=== PATIENT | male | born 1945 | race Caucasian/White ===

== ENCOUNTER 2021-06-28 11:46 | Outpatient (CLI) | payer MEDICARE, SELFPAY ==
[2021-06-28 19:23] LABS: Basophils Percent Auto 0.6 % (0.2-1.2); Eosinophils Absolute Auto 0.1 K/mm3 (0-0.3); Eosinophils Percent Auto 2.2 % (0-4.4); Hematocrit 50.3 % (42.0-52.0); Hemoglobin 16.4 g/dL (14.0-18.0); Immature Granulocyte Absolute 0.02 K/mm3 (0.00-0.031); Immature Granulocyte Percent A 0.3 % (0-0.5); Lymphocytes Absolute Auto 1.21 K/mm3 (0.9-3.2); Lymphocytes Percent Auto 19.2 % (18.3-44.2); Mean Corpuscular HGB Conc 32.6 g/dl (32-36); Mean Corpuscular Hemoglobin 31.4 pg (26-34); Mean Corpuscular Volume 96.4 fl (80-100); Mean Platelet Volume 11.3 fl (7.4-10.4); Monocytes Absolute Auto 0.5 K/mm3 (0.1-0.6); Monocytes Percent Auto 8.1 % (2.6-8.5); Neutrophils Absolute Auto 4.4 K/mm3 (1.3-6.7); Neutrophils Percent Auto 69.6 % (45.5-73.1); Platelet Count Result 173 k/mm3 (150-375); Red Blood Count 5.22 M/mm3 (4.6-6.20); Red Cell Distribution Width 13.8 % (11.5-14.5); White Blood Count 6.3 K/mm3 (4.5-10.0)
[2021-06-28 19:31] LABS: Add Urine Microscopic? YES; Alanine Aminotransferase 35 U/L (4-50); Albumin Level 4.3 g/dL (3.5-5.1); Alkaline Phosphatase 119 U/L (38-126); Anion Gap 13 mmol/L (8-16); Appearance Urine Clear (Clear); Aspartate Amino Transferase 30 U/L (17-59); Bilirubin Urine Negative (Negative); Bilirubin,Total 0.8 mg/dL (0.2-1.3); Blood Urea Nitrogen 17 mg/dL (9-20); Blood Urine Negative (Negative); Calcium 9.3 mg/dL (8.4-10.2); Carbon Dioxide 28 mmol/L (22-30); Chloride 101 mmol/L (98-107); Cholesterol 269 mg/dL (0-200); Color Urine Yellow (Yellow); Estimated Glomerular Filt Rate 59; Glucose 171 mg/dL (65-110); Glucose Urine UA Negative (Negative); HDL Direct 77 mg/dL; Ketones Urine Negative (Negative); Leukocyte Esterase Ur Negative LEU/UL (NEGATIVE); Mucus Urine Rare /lpf; Nitrate Urine Negative (Negative); Protein Urine Negative (Negative); RBC Urine 0-2 /hpf (0-2); Sodium 142 mmol/L (137-145); Specific Grav Ur 1.018 (1.001-1.035); Triglycerides 91 mg/dL (<150); WBC Urine 0-3 /hpf (0-3)
[2021-06-28 19:33] LABS: Iron 149 ug/dL (49-181)
[2021-06-28 19:42] LABS: LDL Cholesterol Direct 165 mg/dL
[2021-06-28 19:46] LABS: Percent Iron Saturation 67 % (20-50)
[2021-06-28 20:00] LABS: Prostate Specific Antigen 0.7 ng/mL (< OR = 4.0)
[2021-06-28 20:08] LABS: Hemoglobin A1C 5.3 % (<5.7)
[2021-07-02 11:09] LABS: Carbamazepine Tegretol 5.8 mcg/mL (4.0-12.0)
== END 2021-06-28 11:47 | disposition home or self-care (01) ==
PROVIDERS: PCP Family Medicine; Visit Provider Family Medicine
DX: G50.0 Trigeminal neuralgia (principal); Z00.00 Encounter for general adult medical examination without abnormal findings; R73.09 Other abnormal glucose; I10 Essential (primary) hypertension; Z12.5 Encounter for screening for malignant neoplasm of prostate
CPT/HCPCS: 36415; 80053; 80061; 80156; 81001; 83036; 83540; 83550; 84153; 84443; 85025; G0103

== ENCOUNTER 2022-01-27 14:18 | Outpatient (CLI) | payer MEDICARE, SELFPAY ==
[2022-01-27 20:37] LABS: Hemoglobin A1C 5.2 % (<5.7)
== END 2022-01-27 14:19 | disposition home or self-care (01) ==
PROVIDERS: PCP Family Medicine; Visit Provider Family Medicine
DX: R73.09 Other abnormal glucose (principal)
CPT/HCPCS: 36415; 83036

== ENCOUNTER 2022-03-12 14:24 | Outpatient (CLI) | payer MEDICARE, SELFPAY ==
[2022-03-12 19:23] LABS: Cholesterol 252 mg/dL (0-200); HDL Direct 59 mg/dL; Triglycerides 86 mg/dL (<150)
[2022-03-12 19:34] LABS: LDL Cholesterol Direct 147 mg/dL
== END 2022-03-12 14:25 | disposition home or self-care (01) ==
PROVIDERS: PCP Family Medicine; Visit Provider Family Medicine
DX: E78.5 Hyperlipidemia, unspecified (principal)
CPT/HCPCS: 36415; 80061

== ENCOUNTER 2022-09-22 14:05 | Outpatient (CLI) | payer MEDICARE, SELFPAY ==
[2022-09-22 19:02] LABS: Basophils Percent Auto 0.4 % (0.2-1.2); Eosinophils Absolute Auto 0.1 K/mm3 (0-0.3); Eosinophils Percent Auto 1.1 % (0-4.4); Hematocrit 53.2 % (42.0-52.0); Hemoglobin 17.3 g/dL (14.0-18.0); Immature Granulocyte Absolute 0.04 K/mm3 (0.00-0.031); Immature Granulocyte Percent A 0.4 % (0-0.5); Lymphocytes Absolute Auto 1.23 K/mm3 (0.9-3.2); Lymphocytes Percent Auto 13.5 % (18.3-44.2); Mean Corpuscular HGB Conc 32.5 g/dl (32-36); Mean Corpuscular Hemoglobin 31.1 pg (26-34); Mean Corpuscular Volume 95.7 fl (80-100); Mean Platelet Volume 10.9 fl (7.4-10.4); Monocytes Absolute Auto 0.7 K/mm3 (0.1-0.6); Monocytes Percent Auto 7.7 % (2.6-8.5); Neutrophils Percent Auto 76.9 % (45.5-73.1); Platelet Count Result 214 k/mm3 (150-375); Red Blood Count 5.56 M/mm3 (4.6-6.20); Red Cell Distribution Width 13.5 % (11.5-14.5); White Blood Count 9.1 K/mm3 (4.5-10.0)
[2022-09-22 19:44] LABS: Alanine Aminotransferase 44 U/L (6-50); Albumin Level 4.7 g/dL (3.5-5.1); Alkaline Phosphatase 135 U/L (38-126); Anion Gap 11 mmol/L (8-16); Aspartate Amino Transferase 58 U/L (17-59); Bilirubin,Total 0.9 mg/dL (0.2-1.3); Blood Urea Nitrogen 25 mg/dL (9-20); Calcium 9.1 mg/dL (8.4-10.2); Carbon Dioxide 27 mmol/L (22-30); Chloride 104 mmol/L (98-107); Cholesterol 281 mg/dL (0-200); Estimated Glomerular Filt Rate > 60; Glucose 128 mg/dL (65-110); HDL Direct 56 mg/dL; Potassium 3.5 mmol/L (3.4-5.0); Sodium 142 mmol/L (137-145); Triglycerides 116 mg/dL (<150)
[2022-09-22 19:55] LABS: LDL Cholesterol Direct 165 mg/dL
[2022-09-22 20:13] LABS: Prostate Specific Antigen 0.9 ng/mL (< OR = 4.0)
[2022-09-22 21:23] LABS: Hemoglobin A1C 5.1 % (<5.7)
== END 2022-09-22 14:06 | disposition home or self-care (01) ==
PROVIDERS: PCP Family Medicine; Visit Provider Family Medicine
DX: Z12.5 Encounter for screening for malignant neoplasm of prostate (principal); R73.09 Other abnormal glucose; K59.00 Constipation, unspecified; I10 Essential (primary) hypertension; G50.0 Trigeminal neuralgia; G47.00 Insomnia, unspecified; F41.9 Anxiety disorder, unspecified; E78.5 Hyperlipidemia, unspecified
CPT/HCPCS: 36415; 80053; 80061; 83036; 84153; 85025; G0103

== ENCOUNTER 2023-05-18 03:13 | Day surgery (SDC) | payer MEDICARE, SELFPAY ==
[2023-05-15 16:07] VITALS: BMI 24.1
[2023-05-18] VITALS (14 sets, daily range): BP systolic 109–181; BP diastolic 50–114; PULSE 58–78; RESP 12–22; TEMP 36.6; O2SAT 95–100; BMI 25.0
--- NOTE | 2023-05-18 11:09 | WPDMODSED ---
Moderate Sedation Note-Pt Data Patient Data Diagnosis: Stroke, TIA Present Complaint: History of stroke, TIA. No active complaint Procedure to be performed/Plan: 1. Multiplanar transesophageal echocardiogram with per color-flow pulse-wave Doppler Agitated saline study Moderate sedation Allergies Allergy/AdvReac Type Severity Reaction Status Date / Time No Known Allergies Allergy Verified 05/18/23 10:31 Home Medications Medication Instructions Recorded Confirmed Type blood pressure monitor #1 ea 02/14/21 01/21/23 Rx esomeprazole magnesium 20 mg 20 mg PO DAILY #90 tabs 02/13/22 05/15/23 Rx tablet,delayed release buspirone 5 mg tablet 5 mg PO BID #60 tabs 01/21/23 05/15/23 Rx escitalopram oxalate 10 mg tablet 10 mg PO DAILY #90 tabs 01/21/23 05/15/23 Rx (Lexapro) aspirin 81 mg chewable tablet 81 mg PO DAILY 01/27/23 05/15/23 History atorvastatin 40 mg tablet 40 mg PO DAILY #90 tabs 03/05/23 05/15/23 Rx amlodipine 5 mg tablet 5 mg PO DAILY #90 tabs 03/31/23 05/15/23 Rx lisinopril 10 mg tablet 10 mg PO DAILY 05/15/23 05/15/23 History multivit with minerals-iron 18 1 tablet PO DAILY 05/15/23 05/15/23 History mg-folic ac 400 mcg-vit K 25 mcg tablet (Adults Multivitamin) Current Medications: Active Medications Sodium Chloride (Normal Saline Iv) 1,000 mls @ 100 mls/hr IV CONT .Q10H LENCHO Sedation/Anesthesia: No previous sedation/anesthesia problems (including family history). PENDING SALE TO [facility] Family History Family History Mother Patient's mother is Father Patient's father is Social History Social History (Updated 01/14/23 @ 14:28 by Yumiko Chadwick MA) Smoking status: Never smoker Second hand tobacco smoke exposure: No Alcohol intake: never Substance use: never Substance use type: does not use Lack of Transportation: No Lack of Food: Never True Current Housing: I Have Housing Concerned About Future Housing: No Difficulty Paying Gas/Electric Bills: No Difficulty Paying for Meds: No Currently Unemployed: No Education: High School Diploma/GED Difficulty w/ Childcare or Family Care: No Living arrangements: with family Occupation/Education: retired Gender identity (if verbalized by the patient): Male Spiritual care concerns: No Mod Sed Physical Exam Physical Exam Pre Procedural Exam: Normal: Appearance, Eyes, Ears, Nose, Neck, Throat, Airway, Lungs, Heart Size, Heart Rate, Heart Rhythm, Neuro Exam, Extremities and Skin Hours since solid foods: 12 Hours since liquid intake: 12 Mallampati Classification: class II Internal Medicine - PN: Obj Da Vital Signs Vital Signs: Vital Signs - 24 hr 05/18/23 10:35 Temperature 36.6 C Pulse Rate 66 Respiratory Rate 22 H Blood Pressure 138/62 Pulse Oximetry 99 Oxygen Delivery Room Air Meds/Results Medications: Active Medications Generic Name Dose Route Start Last Admin Trade Name Freq PRN Reason Stop Dose Admin Sodium Chloride 1,000 mls @ 100 mls/hr 05/18/23 10:00 Normal Saline Iv IV CONT .Q10H LENCHO ASA Classification/Sedation ASA Classification/Sedation ASA Class: II Emergent: No Risks: Risks, benefits and alternatives explained and patient/family accepted plan for sedation. Patient re-evaluated immediately prior to sedation.
--- NOTE | 2023-05-18 11:39 | WPDTEECHO ---
[facility] TransEsophageal Echocardiogram Date of procedure: 05/18/23 Procedure Type: 1. Multiplanar transesophageal echocardiography with color flow and pulse wave Doppler 2. Agitated saline study 3. Moderate sedation Diagnosis: History of stroke/TIA Indications: History of stroke/TIA Image Quality: Good Findings: After discussing the risks, benefits alternatives of procedure patient agreed with via verbal and written informed consent. Risks discussed include esophageal rupture perforation, need for emergent surgery, bleeding, pain, infection, is sore throat. 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 Procedure start time 11:13 a.m. Procedure stop time 11:29 a.m. Complications: None Blood loss: None Moderate sedation: A total of 4 mg of Versed and 75 mcg of fentanyl given in divided dosages and Hurricaine spray to the hypopharynx x2 for topical anesthetic. Medications were administered patient was monitored by Gabi Meraz RN Findings: Normal left ventricular size. Ejection fraction roughly estimated at 60%. Normal right ventricular size and function. Mild left atrial enlargement. Normal right atrial size. Atrial septum is intact without color flow or agitated saline evidence of shunting. Left atrial appendage is also normal with no mass or thrombus. Pulse wave velocities are greater than 100 centimeters/second. Normal mitral valve with [id number] mitral regurgitation. Aortic valve is trileaflet, mildly sclerotic and mild AI. Pulmonic valve is grossly normal without significant pulmonic insufficiency. Tricuspid valve is normal. Aortic root normal in size without any obvious scoliosis noted at the aortic root level. No pericardial effusion. Conclusions: 1. Normal left ventricular size and function 2. Mild left atrial enlargement 3. Normal left atrial appendage and normal atrial septum. No agitated saline evidence of shunting. 4. [id number] mitral regurgitation, mild AI 5. Moderate sedation
== END 2023-05-18 12:40 | disposition home or self-care (01) ==
PROVIDERS: PCP Family Medicine; Visit Provider Internal Medicine Cardiovascular Disease
PROC: (CPT 93312; principal; 2023-05-18 11:00)
DX: I34.0 Nonrheumatic mitral (valve) insufficiency (principal); I49.3 Ventricular premature depolarization; R06.09 Other forms of dyspnea; I10 Essential (primary) hypertension; E78.5 Hyperlipidemia, unspecified; F32.A Depression, unspecified; Z86.73 Personal history of transient ischemic attack (TIA), and cerebral infarction without residual deficits; Z79.82 Long term (current) use of aspirin; Z77.22 Contact with and (suspected) exposure to environmental tobacco smoke (acute) (chronic)
CPT/HCPCS: 93312; 93320; 93325; J2250; J3010; J7030

== ENCOUNTER 2023-06-06 00:12 | Emergency (ER) | payer MEDICARE, SELFPAY ==
--- NOTE | ~2023-06-06 | XR_ITS ---
EXAMINATION: XR chest 2V DATE: 06/06/2023 00:58 INDICATION: Cough. Weakness. TECHNIQUE: Frontal and lateral views of the chest were obtained. COMPARISON: Chest 2 views 07/07/2017 FINDINGS: There are airspace opacities at the lung bases. No pleural effusion or pneumothorax. The he art size is normal. IMPRESSION: 1. Airspace opacities at the lung bases with worsening on the left, consistent with atelectasis versu s pneumonia. Reviewed, dictated and finalized at location A. OG IC DESIGN ARCHITECT IMPRESSION: 1. Airspace opacities at the lung bases with worsening on the left, consistent with atelectasis versus pneumonia.
--- NOTE | ~2023-06-06 | CT_ITS ---
EXAMINATION: CT brain wo con DATE: 06/06/2023 02:11 INDICATION: Unsteady gait. TECHNIQUE: Computed tomography (CT) of the head was performed without intravenous contrast. The mA wa s adjusted according to patient size. Iterative reconstruction technique was employed. The dose-lengt h product was 1210.67 mGy-cm. COMPARISON: None FINDINGS: There is an old infarct in right temporal parietal occipital region. There are scattered ar eas of low attenuation in the cerebral white matter. There are old infarcts in the bilateral thalami and bilateral basal ganglia. There is no intracranial hemorrhage, acute infarction, or abnormal intra cranial mass lesion. The ventricles are normal in size. There is mild mucosal thickening in the paran caroline sinuses. There are likely changes of ocular lens replacement surgeries. The mastoid air cells ar e normal. IMPRESSION: 1. Old infarcts involving the right temporal parietal occipital region and bilateral thalami and basa l ganglia. 2. Moderate nonspecific cerebral white matter disease, which likely represents chronic small vessel i schemic disease. Reviewed, dictated and finalized at location A. F LIBRARIAN WORK WITH BLIND IMPRESSION: 1. Old infarcts involving the right temporal parietal occipital region and bila teral thalami and basal ganglia. 2. Moderate nonspecific cerebral white matter disease, which likely represents chronic small vessel ischemic disease.
[2023-06-06 00:12] VITALS: BP 123/92; PULSE 85; RESP 22; TEMP 37.8; O2SAT 94
--- NOTE | 2023-06-06 00:15 | ECG_ITS ---
Measurements Intervals [place] Rate: 82 P: 48 [place]: 166 QRS: -20 QRSD: 109 T: 86 QT: 361 QTc: 422 Interpretive Statements SINUS RHYTHM NONSPECIFIC ST & T-WAVE ABNORMALITY NO PREVIOUS ECG AVAILABLE FOR COMPARISON Electronically Signed On 06-07-2023 14:24:28 CIRCLE SAW OPERATOR by Concepcion Red M.D.
[2023-06-06 00:36] LABS: Basophils Percent Auto 0.2 % (0.2-1.2); Eosinophils Percent Auto 0.1 % (0-4.4); Hematocrit 44.2 % (42.0-52.0); Hemoglobin 14.4 g/dL (14.0-18.0); Immature Granulocyte Absolute 0.06 K/mm3 (0.00-0.031); Immature Granulocyte Percent A 0.4 % (0-0.5); Lymphocytes Percent Auto 1.4 % (18.3-44.2); Mean Corpuscular HGB Conc 32.6 g/dl (32-36); Mean Corpuscular Hemoglobin 31.2 pg (26-34); Mean Corpuscular Volume 95.7 fl (80-100); Mean Platelet Volume 10.3 fl (7.4-10.4); Monocytes Absolute Auto 0.8 K/mm3 (0.1-0.6); Monocytes Percent Auto 5.6 % (2.6-8.5); Neutrophils Absolute Auto 12.8 K/mm3 (1.3-6.7); Neutrophils Percent Auto 92.3 % (45.5-73.1); Platelet Count Result 185 k/mm3 (150-375); Red Blood Count 4.62 M/mm3 (4.6-6.20); Red Cell Distribution Width 13.3 % (11.5-14.5); White Blood Count 13.9 K/mm3 (4.5-10.0)
[2023-06-06 00:46] LABS: Alanine Aminotransferase 23 U/L (6-50); Albumin Level 4.3 g/dL (3.5-5.1); Alkaline Phosphatase 121 U/L (38-126); Anion Gap 11 mmol/L (8-16); Aspartate Amino Transferase 32 U/L (17-59); Bilirubin,Total 0.7 mg/dL (0.2-1.3); Blood Urea Nitrogen 29 mg/dL (9-20); Calcium 8.9 mg/dL (8.4-10.2); Carbon Dioxide 25 mmol/L (22-30); Chloride 103 mmol/L (98-107); Estimated CRCL calculation 39 ml/min; Estimated Glomerular Filt Rate 49; Glucose 151 mg/dL (65-110); Sodium 139 mmol/L (137-145)
[2023-06-06 01:11] LABS: Influenza A QL RT-PCR Negative (Negative); Influenza B QL RT-PCR Negative (Negative); RSV RNA, RT-PCR Negative (Negative); SARS-CoV-2 RNA PCR Positive (Negative)
[2023-06-06] MEDS: SODIUM CHLORIDE 0.9% IV 1,000 ML 999 ML IV CONT (01:30)
[2023-06-06] MEDS: ACETAMINOPHEN 500 MG TABLET 1000 MG PO (01:39)
[2023-06-06 01:46] LABS: Lactic Acid Reflex 2.4 mmol/L (0.7-2.0)
[2023-06-06 01:57] LABS: NT Pro B Type Natriuretic Pept 1320 pg/mL (19.9-100); Troponin I < 0.012 ng/mL (0.000-0.034)
[2023-06-06 02:04] LABS: Procalcitonin 1.9 ng/mL
[2023-06-06 02:06] VITALS: BP 123/91; PULSE 70; RESP 15; O2SAT 92
[2023-06-06 02:58] LABS: Appearance Urine Cloudy (Clear); Bacteria Urine None Seen /hpf; Bilirubin Urine 1+ (Negative); Blood Urine 2+ (Negative); Color Urine Dark Yellow (Yellow); Glucose Urine UA Negative (Negative); Ketones Urine Trace mg/dL (Negative); Leukocyte Esterase Ur Trace LEU/UL (Negative); Need Manual Microscopic Reviewed; Nitrate Urine Negative (Negative); Protein Urine 2+ mg/dL (Negative); RBC Urine 0-2 /hpf (0-2); Specific Grav Ur 1.028 (1.001-1.035); Squamous Epithelial Cell Urine Few /hpf (Few); WBC Urine 0-5 /hpf
[2023-06-06 03:00] VITALS: BP 115/64; PULSE 67; RESP 16; O2SAT 93
[2023-06-06 03:35] LABS: Add Urine Microscopic? YES
[2023-06-06 04:30] LABS: Reflex Lactic Acid Yes or No Add Lactic
--- NOTE | 2023-06-06 05:13 | ED.GENADULT ---
HPI - General Adult General Chief complaint: Weakness Stated complaint: SICK CASE, WEAK, COUGH Time Seen by Provider: 06/06/23 01:12 History of Present Illness HPI narrative: Patient is a 78-year-old gentleman who presents emergency department chief complaint not feeling well patient has prior history a hemorrhagic stroke and also has had multiple other small strokes. Patient states that the family on called EMS after he had had some falls today at home initially EMS and nondistended his oxygen saturation was 87% on room air was placed on oxygen patient was brought to the emergency department and currently not requiring oxygen therapy. The patient states that he threw that he may have COVID Related Data Home Medications Medication Instructions Recorded Confirmed aspirin 81 mg chewable tablet 81 mg PO DAILY 01/27/23 05/15/23 lisinopril 10 mg tablet 10 mg PO DAILY 05/15/23 05/15/23 multivit with minerals-iron 18 1 tablet PO DAILY 05/15/23 05/15/23 mg-folic ac 400 mcg-vit K 25 mcg tablet (Adults Multivitamin) Allergies Allergy/AdvReac Type Severity Reaction Status Date / Time No Known Allergies Allergy Verified 06/06/23 00:19 Review of Systems Review of Systems: A 10 system review of systems was completed on the patient and is negative except for what is stated in the HPI. Nursing and ancillary documentation was reviewed. [facility] Family History Family History Mother Patient's mother is Father Patient's father is Social History Social History Smoking status: Never smoker Second hand tobacco smoke exposure: No Alcohol intake: never Substance use: never Substance use type: does not use Lack of Transportation: No Lack of Food: Never True Current Housing: I Have Housing Concerned About Future Housing: No Difficulty Paying Gas/Electric Bills: No Difficulty Paying for Meds: No Currently Unemployed: No Education: High School Diploma/GED Difficulty w/ Childcare or Family Care: No Living arrangements: with family Occupation/Education: retired Gender identity (if verbalized by the patient): Male Spiritual care concerns: No Exam Narrative: GENERAL: Well-appearing, well-nourished, and in no acute distress. HEAD: Normocephalic, atraumatic. EYES: PERRLA and EOMI. ENT: Nares clear, no rhinorrhea or epistaxis. Mucous membranes moist. NECK: Supple. CHEST: Clear to auscultation. No respiratory distress. HEART: Regular rate and rhythm. No murmur heard. Normal peripheral pulses. ABDOMEN: Soft, nontender, nondistended, normal active bowel sounds. EXTREMITIES: Normal range of motion. No edema. SKIN: Warm, dry, no rash. NEURO: No focal deficits. Alert and oriented x3. PSYCH: Normal mood and affect. Course Vital Signs Vital signs: Vital Signs Temperature 37.8 C H 06/06/23 00:12 Pulse Rate 85 06/06/23 00:12 Respiratory Rate 22 H 06/06/23 00:12 Blood Pressure 123/92 H 06/06/23 00:12 Pulse Oximetry 94 06/06/23 00:12 Oxygen Delivery Room Air 06/06/23 00:12 Temperature 37.8 C H 06/06/23 00:12 Pulse Rate 85 06/06/23 00:12 Respiratory Rate 22 H 06/06/23 00:12 Blood Pressure 123/92 H 06/06/23 00:12 Pulse Oximetry 94 06/06/23 00:12 Oxygen Delivery Room Air 06/06/23 00:12 Medical Decision Making [facility] Narrative Medical decision making narrative: Differential diagnosis includes pneumonia, COVID-19, UTI, sepsis, CT head showed no evidence of acute abnormality COVID test was positive CBC showed a white count of 13.9 creatinine was 1.4 lactic acid was slightly elevated 2.4. Patient was hydrated in the emergency department is feeling much better at this time patient will be discharged home on doxycycline since there was a slight elevation in the procalcitonin 1.9 and it mirella
[2023-06-06 06:04] VITALS: BP 106/61; PULSE 64; RESP 18; O2SAT 95
== END 2023-06-06 06:14 | disposition home or self-care (01) ==
PROVIDERS: Emergency Provider Emergency Medicine; PCP Family Medicine
DX: U07.1 COVID-19 (principal); J12.82 Pneumonia due to coronavirus disease 2019; Z79.82 Long term (current) use of aspirin; Z86.73 Personal history of transient ischemic attack (TIA), and cerebral infarction without residual deficits
CPT/HCPCS: 36415; 70450; 71046; 80053; 81001; 83605; 83880; 84145; 84484; 85025; 87637; 93005; 96360; 99284; A9270; J7030

== ENCOUNTER 2023-12-30 10:00 | Outpatient (CLI) | payer MEDICARE, SELFPAY ==
[2023-12-30 10:44] LABS: Appearance Urine Clear (Clear); Bacteria Urine None Seen /hpf; Bilirubin Urine Negative (Negative); Blood Urine Negative (Negative); Color Urine Dark Yellow (Yellow); Glucose Urine UA Negative (Negative); Ketones Urine Trace mg/dL (Negative); Leukocyte Esterase Ur Trace LEU/UL (Negative); Nitrate Urine Negative (Negative); Non Pathogenic Casts 0-2; Protein Urine Trace mg/dL (Negative); RBC Urine 0-2 /hpf (0-2); Specific Grav Ur 1.033 (1.001-1.035); Squamous Epithelial Cell Urine None Seen /hpf (Few)
[2023-12-30 11:01] LABS: Add Urine Microscopic? NO
[2023-12-30 11:02] LABS: Hematocrit 44.8 % (42.0-52.0); Hemoglobin 14.9 g/dL (14.0-18.0); Mean Corpuscular HGB Conc 33.3 g/dl (32-36); Mean Corpuscular Hemoglobin 31.6 pg (26-34); Mean Corpuscular Volume 94.9 fl (80-100); Mean Platelet Volume 10.6 fl (7.4-10.4); Platelet Count Result 198 k/mm3 (150-375); Red Blood Count 4.72 M/mm3 (4.6-6.20); Red Cell Distribution Width 12.9 % (11.5-14.5); White Blood Count 6.9 K/mm3 (4.5-10.0)
[2023-12-30 11:21] LABS: Alanine Aminotransferase 19 U/L (6-50); Albumin Level 4.2 g/dL (3.5-5.1); Alkaline Phosphatase 127 U/L (38-126); Anion Gap 9 mmol/L (4-12); Aspartate Amino Transferase 27 U/L (17-59); Bilirubin,Total 0.5 mg/dL (0.2-1.3); Blood Urea Nitrogen 23 mg/dL (9-20); Calcium 8.9 mg/dL (8.4-10.2); Carbon Dioxide 29 mmol/L (22-30); Chloride 102 mmol/L (98-107); Cholesterol 184 mg/dL (0-200); Estimated Glomerular Filt Rate > 60; Glucose 98 mg/dL (65-110); HDL Direct 67 mg/dL; Potassium 3.7 mmol/L (3.4-5.0); Sodium 140 mmol/L (137-145); Triglycerides 88 mg/dL (<150)
[2023-12-30 11:32] LABS: LDL Cholesterol Direct 87 mg/dL
[2023-12-30 12:03] LABS: Prostate Specific Antigen 0.7 ng/mL (< OR = 4.0)
== END 2023-12-30 10:01 | disposition home or self-care (01) ==
PROVIDERS: PCP Family Medicine; Visit Provider Family Medicine
DX: E78.5 Hyperlipidemia, unspecified (principal); F41.9 Anxiety disorder, unspecified; G47.00 Insomnia, unspecified; H53.8 Other visual disturbances; I10 Essential (primary) hypertension; I63.9 Cerebral infarction, unspecified; K59.00 Constipation, unspecified; R03.0 Elevated blood-pressure reading, without diagnosis of hypertension; R26.81 Unsteadiness on feet; R41.3 Other amnesia; Z12.5 Encounter for screening for malignant neoplasm of prostate
CPT/HCPCS: 36415; 80053; 80061; 81003; 84153; 85027; 87086; G0103